=== PATIENT | female | born 1955 | race Caucasian/White ===

== ENCOUNTER 2016-06-02 09:24 | Inpatient (IN) | payer MEDICARE ==
[~2016-06-02] VITALS: Ht 162.6 cm; Wt 82.3 kg
[2016-06-02 03:00] VITALS: BP 157/74
[~2016-06-02 09:24] MED LIST: AMLO5TAB2 PO; ASPI-482 PO; ATEN25TA PO; CARI350T PO; CITA10TA8 PO; ESCI5TAB8 PO; LEVO25TA2 PO; LORA1TAB PO; LOSA50TA6 PO; PANT40TA5 PO
--- NOTE | 2016-06-02 10:05 | RAD ---
AP portable chest radiograph 06/02/2016 Clinical History: Chest congestion for several days. Shortness of breath. An AP portable erect digital radiograph of the chest was obtained. Comparison study is dated. Comparison study is dated 08/31/2015. The cardiac silhouette is normal in size. The thoracic aorta is mildly tortuous. No acute pulmonary infiltrate is seen. No pleural effusion or pneumothorax is noted. Degenerative changes are seen involving the thoracic spine and both shoulders.. Impression: No acute abnormality is seen.
[2016-06-02 10:15] LABS: BILIRUBIN,URINE NEGATIVE (NEG); GLUCOSE,URINE NEGATIVE (NEG); NITRITE,URINE NEGATIVE (NEG); PROTEIN,URINE NEGATIVE (NEG-TRACE); UROBILINOGEN,URINE 0.2 mg/dL (0.2 mg/dL)
[2016-06-02 10:24] LABS: BASO # 0.1 x10^3/uL (0.0-0.2); BASO % 2 % (0-3); EOS % 3 % (0-3); HEMATOCRIT 45.8 % (36.0-47.0); HEMOGLOBIN 15.3 g/dL (12.0-15.5); LYMPH # 2.6 x10^3/uL (1.0-4.8); LYMPH % 33 % (24-48); MEAN CORPUSCULAR HEMOGLOBIN 30 pg (25-35); MEAN CORPUSCULAR HGB CONC 34 g/dL (31-37); MEAN CORPUSCULAR VOLUME 91 fL (79-100); MONO % 8 % (0-9); NEUT % 54 % (31-73); PLATELET COUNT 320 x10^3/uL (140-400); RED BLOOD COUNT 5.06 x10^6/uL (3.50-5.40); RED CELL DISTRIBUTION WIDTH 15.5 % (11.5-14.5); WHITE BLOOD COUNT 7.9 x10^3/uL (4.0-11.0)
[2016-06-02 10:31] LABS: BACTERIA,URINE FEW /HPF (0-FEW); RBC,URINE OCC /HPF (0-2); SQUAMOUS EPITHELIAL CELL,UR MOD /LPF; WBC,URINE OCC /HPF (0-4)
[2016-06-02] MEDS ORDERED: IV NORMAL SALINE 500ML BAG 500 ML IV ONE (10:45)
[2016-06-02] MEDS ORDERED: ONDANSETRON PF 4 MG/2 ML VIAL. IV ONE (10:45)
[2016-06-02 10:51] LABS: CALCIUM 9.7 mg/dL (8.5-10.1); CREATININE 1.3 mg/dL (0.6-1.0); GFR 41.5; POTASSIUM 3.8 mmol/L (3.5-5.1)
[2016-06-02] MEDS: HYDROMORPHONE 2 MG/ML VIAL. IV PRN ×2 (10:54→12:02)
[2016-06-02 10:57] LABS: ALBUMIN 3.6 g/dL (3.4-5.0); DIRECT BILIRUBIN 0.1 mg/dL (0.0-0.2); TOTAL BILIRUBIN 0.6 mg/dL (0.2-1.0)
[2016-06-02] MEDS ORDERED: HYDR-2666 PO (11:23)
[2016-06-02] MEDS ORDERED: ONDA4TAB10 SL (11:23)
--- NOTE | 2016-06-02 11:24 | PHYS DOC ---
Past Medical History Past Medical History: Anxiety, Depression, High Cholesterol, Hypertension, Hypothyroid Past Surgical History: Tonsillectomy, Tubal ligation, Other Additional Past Surgical Histo: RIGHT ANKLE SURGERY Alcohol Use: None Drug Use: None Adult General Chief Complaint Chief Complaint: ABDOMINAL PAIN HPI HPI 20-year-old female presenting to the emergency department today with worsening abdominal pain in the left flank for greater than a month. She reports worsening anorexia and approximately 50 pound weight loss last year. She has intermittent watery stools without blood in her stool. She complains of her pain is a sharp intermittent pain that is all over. It does not localize. It is not have alleviating or exacerbating factors present. She has nausea but denies vomiting. Review of systems is negative for chest pain shortness of breath vomiting fevers chills. All other review of systems is negative unless otherwise noted in history of present illness. Review of Systems Review of Systems SEE ABOVE. Current Medications Current Medications Current Medications Medications (Trade) Dose Ordered Sig/Alberta Start Time Stop Time Status Last Admin Dose Admin Hydromorphone HCl (Dilaudid) 0.5 mg PRN Q1HR PRN 06/02/16 10:45 06/02/16 12:02 0.5 MG Ondansetron HCl 4 mg 4 mg 1X ONCE 06/02/16 10:45 06/02/16 10:46 DC 06/02/16 10:54 4 MG Sodium Chloride (Iv Sodium Chloride 0.9% 500ml Bag) 500 ml @ 500 mls/hr 1X ONCE 06/02/16 10:45 06/02/16 11:44 DC 06/02/16 10:54 500 MLS/HR Allergies Allergies Allergies Coded Allergies Type Severity Reaction Last Updated Verified No Known Drug Allergies 09/01/15 No Physical Exam Physical Exam Constitutional: Well developed, well nourished, no acute distress, non-toxic appearance. HENT: Normocephalic, atraumatic, bilateral external ears normal, oropharynx moist, no oral exudates, nose normal. Eyes: PERRLA, EOMI, conjunctiva normal, no discharge. [] Neck: Normal range of motion, no tenderness, supple, no stridor. Cardiovascular:Heart rate regular rhythm, no murmur [] Lungs & Thorax: Bilateral breath sounds clear to auscultation Abdomen: Soft nontender abdomen without rebound tenderness or guarding present. Negative McBurneys point. Negative Lockwood sign. No ecchymosis present. Skin: Warm, dry, no erythema, no rash. [] Back: No tenderness, mild left CVA tenderness. No CVA tenderness on the right. No ecchymosis or erythema present. Extremities: No tenderness, no cyanosis, no clubbing, ROM intact, no edema. Neurologic: Alert and oriented X 3, normal motor function, normal sensory function, no focal deficits noted. [] Psychologic: Affect normal, judgement normal, mood normal. [] Current Patient Data Vital Signs Vital Signs Date Time Temp Pulse Resp B/P Pulse Ox O2 Delivery O2 Flow Rate FiO2 06/02/16 09:36 97.6 92 18 152/98 98 Room Air 97.6 Lab Values Laboratory Tests Test 06/02/16 10:00 06/02/16 10:10 Urine Collection Type U cath Urine Color Yellow Urine Clarity Clear Urine pH 7.0 Urine Specific [place] 1.015 Urine Protein Negativemg/dL (NEG-TRACE) Urine Glucose (UA) Negativemg/dL (NEG) Urine Ketones (Stick) Negativemg/dL (NEG) Urine Blood Negative (NEG) Urine Nitrite Negative (NEG) Urine Bilirubin Negative (NEG) Urine Urobilinogen Dipstick 0.2mg/dL (0.2 mg/dL) Urine Leukocyte Esterase Negative (NEG) Urine RBC Occ/HPF (0-2) Urine WBC Occ/HPF (0-4) Urine Squamous Epithelial Cells Mod/LPF Urine Bacteria Few/HPF (0-FEW) Urine Hyaline Casts Few/HPF Urine Mucus Marked/LPF White Blood Count 7.9x10^3/uL (4.0-11.0) Red Blood Count 5.06x10^6/uL (3.50-5.40) Hemoglobin 15.3g/dL (12.0-15.5) Hematocrit 45.8% (36.0-47.0) Mean Corpuscular Volume 91fL (79-100) Mean Corpuscular Hemoglobin 30pg (25-35) Mean Corpuscular Hemoglobin Concent 34g/dL (31-37) Red Cell Distribution Width 15.5% (11.5-14.5) H Platelet Count 320x10^3/uL (140-400) Neutrophils (%) (Auto) 54% (31-73) Lymphocytes (%) (Auto) 33% (24-48) Monocytes (%) (Auto) 8% (0-9) Eosinophils (%) (Auto) 3% (0-3) Basophils (%) (Auto) 2% (0-3) Neutrophils # (Auto) 4.3x10^3uL (1.8-7.7) Lymphocytes # (Auto) 2.6x10^3/uL (1.0-4.8) Monocytes # (Auto) 0.6x10^3/uL (0.0-1.1) Eosinophils # (Auto) 0.3x10^3/uL (0.0-0.7) Basophils # (Auto) 0.1x10^3/uL (0.0-0.2) Sodium Level 142mmol/L (136-145) Potassium Level 3.8mmol/L (3.5-5.1) Chloride Level 104mmol/L (98-107) Carbon Dioxide Level 30mmol/L (21-32) Anion Gap 8 (6-14) Blood Urea Nitrogen 12mg/dL (7-20) Creatinine 1.3mg/dL (0.6-1.0) H Estimated GFR (Cockcroft-Gault) 41.5 Glucose Level 106mg/dL (70-99) H Calcium Level 9.7mg/dL (8.5-10.1) Total Bilirubin 0.6mg/dL (0.2-1.0) Direct Bilirubin 0.1mg/dL (0.0-0.2) Aspartate Amino Transferase (AST) 31U/L (15-37) Alanine Aminotransferase (ALT) 24U/L (14-59) Alkaline Phosphatase 84U/L (46-116) Troponin I Quantitative < 0.017ng/mL (0.000-0.055) DJ-Hlr-U-Type Natriuretic Peptide 422pg/mL (0-124) H Total Protein 8.0g/dL (6.4-8.2) Albumin 3.6g/dL (3.4-5.0) Lipase 177U/L (73-393) Laboratory Tests 06/02/16 10:10 Laboratory Tests 06/02/16 10:10 EKG EKG EKG shows sinus rhythm with regular rate. Normal intervals. Normal axis. ST segments are congruent. Not suggestive of ACS. Reviewed by myself.[] Radiology/Procedures Radiology/Procedures [] Course & Med Decision Making Course & Med Decision Making Pertinent Labs and Imaging studies reviewed. (See chart for details) [] 60-year-old female presenting to the emergency department with generalized abdominal pain for greater than a month it is intermittent. Vital signs showed afebrile with a normal heart rate. Mild hypertension. Physical exam showed a nontender abdomen with mild left CVA tenderness. Blood work was obtained. IV fluids administered along with pain and nausea medications administered. Blood work showed CBC which was unremarkable. Urinalysis not suggestive of infection. Normal specific gravity. Clear. Chemistry panel mild elevation in creatinine without uremia. ProBNP minimally elevated. Troponin within the reference range of normal. CT of the abdomen noncontrast obtained which showed no acute pathology. The patient was subsequently evaluated which continued to show a nontender abdomen. She was feeling better upon receiving her therapy in the emergency department. She was subsequent discharged home with nausea medication to follow-up with her primary care physician for further evaluation workup and care in 2-3 days. Dragon Disclaimer Dragon Disclaimer This electronic medical record was generated, in whole or in part, using a voice recognition dictation system. Departure Departure Impression: Primary Impression: Abdominal pain Additional Impression: Nausea & vomiting Disposition: 01 HOME, SELF-CARE Condition: STABLE Referrals: DONNA RODRIGUEZ MD (PCP) Patient Instructions: Abdominal Pain Additional Instructions: Thank you for allowing us to participate in your care today. Followup with your primary care physician in 3 days if your symptoms do not improve. If you do not have a primary care provider you can ask for a list of our primary care providers. Return to the emergency department you have any new or concerning findings. This should be evaluated by the primary care physician and any necessary consulting services for continued management within a few days after discharge. Return to emergency room if you have any new or concerning symptoms including but not limited to fever, chills, nausea, vomiting, intractable pain, any new rashes, chest pain, shortness of air, uncontrolled bleeding, difficulty breathing, and/or vision loss. You may have been prescribed medication that can change in your level of thinking and ability to operate machinery. These medications include hydrocodone and Ativan. Also, Benadryl has been known to do this as well. Be sure to check with your pharmacist and ask if the medications you've prescribed can affect your level of consciousness. I recommend not operating heavy machinery or driving while on medication such as these. Scripts Hydrocodone Bit/Acetaminophen (Hydrocodone-Apap 5-325 )1 Each Tablet1 Tab PO PRN Q6HRS PRN PAIN #15 TAB Be careful as this medication may cause you to be drowsy or tired. Do not drive on this medication. Prov:JUANITA WEBER MD 06/02/16 Ondansetron (Zofran Odt)4 Mg Tab.rapdis1 Tab SL PRN Q8HRS PRN NAUSEA #6 TAB Prov:JUANITA WEBER MD 06/02/16 Problem Qualifiers JUANITA WEBER MD Jun 02, 2016 11:24
--- NOTE | 2016-06-02 12:07 | RAD ---
CT scan of the abdomen and pelvis without contrast 06/02/2016 Clinical history: Increasing left flank pain for one month. Technique: Unenhanced, contiguous, 2 mm axial sections were obtained through the abdomen and pelvis. One or more of the following individualized dose reduction techniques were utilized for this study: 1. Automated exposure control. 2. Adjustment of the mA and/or kV according to patient size. 3. Use of iterative reconstruction technique. Findings: Comparison study is dated 08/31/2015. Images through the lung bases demonstrate mild cardiomegaly. Minimal dependent subsegmental atelectasis is seen bilaterally. The liver, spleen, and pancreas are within normal limits. A 1.7 cm low-attenuation lesion is seen involving the right adrenal gland. A 1.8 cm low-attenuation lesion is seen involving the left adrenal gland. These likely represent adrenal adenomas. A 8 mm low-attenuation lesion is seen involving the superior pole of the left kidney. This likely represents a cyst. No renal or ureteral calculus is seen. There is no evidence of obstruction of either collecting system. Moderate atherosclerotic calcification of the abdominal aorta is seen. The abdominal aorta tapers normally. The gallbladder is slightly contracted. No free fluid or free air is seen within the abdomen. There is no evidence of bowel obstruction. The appendix is well visualized and is within normal limits. Images through the pelvis demonstrate the urinary bladder distended with urine. The uterus is within normal limits. No adnexal mass is seen. No free fluid is noted. Minimal S shaped curvature of the thoracolumbar spine is seen. Degenerative changes are seen involving the lower thoracic and mid and lower lumbar spine and both hips. Impression: No acute abnormality is seen.
--- NOTE | 2016-06-02 12:33 | EKG ---
[facility] [address] [place] [address] Test Date: 2016-06-02 Test Time: 10:08:26 Pat Name: AMELIE CORREIA Department: Room: Gender: F Fabric Machine Operator: : [id number] Requested By: JUANITA WEBER Order Number: [id number] Reading MD: Measurements Intervals Slater Rate: 79 P: 62 ID: [id number] QRS: 28 QRSD: 76 T: 32 QT: 400 QTc: 460 Interpretive Statements SINUS RHYTHM CONSIDER RIGHT VENTRICULAR HYPERTROPHY POSSIBLY ABNORMAL ECG RI6.01 No previous ECG available for comparison
[2016-06-02] MEDS ORDERED: LABETALOL 20 MG/4 ML DISP.SYRIN. IVP ONE (12:45)
[2016-06-02] MEDS ORDERED: ONDANSETRON PF 4 MG/2 ML VIAL. IV PRN (13:45)
[2016-06-02] MEDS ORDERED: MORPHINE SULFATE 2 MG/ML DISP.SYRIN. IV PRN (13:45)
[2016-06-02] MEDS ORDERED: LORAZEPAM 1 MG TABLET. PO ONE (14:00)
[2016-06-02] MEDS ORDERED: LORAZEPAM 0.5 MG TABLET. PO ONE (14:00)
[2016-06-02] MEDS ORDERED: LEVO75TA PO (14:48)
[2016-06-02] MEDS ORDERED: ALPR1TAB2 PO (14:52)
[2016-06-02 15:00] VITALS: BP 132/78
[2016-06-02 15:41] VITALS: BP 132/78
--- NOTE | 2016-06-02 16:02 | ACF ---
Admission Forms Criteria Admission Criteria Met?: No DENIZ SANDRA Jun 02, 2016 16:02 JUANITA WEBER MD Jun 04, 2016 18:08
--- NOTE | 2016-06-02 16:28 | PDOC1 ---
History and Physical Date of Admission Date of Admission 06/02/16 Identification/Chief Complaint Chief Complaint abd pain Problems: Source Source: Caregiver, Chart review, Patient History of Present Illness History of Present Illness HPI HPI 20-year-old female presenting to the emergency department today for abd pain. She was here last August for epigastric pain, EGD showed esophagitis. Pt said the esophagitis pain is still there, now has lower abd pain , radiating to bl back. ALso has chronic back pain, but denies it is back pain worsening. As per at bedside, pt sometimes waking up with abd pain and cries. + Nausea, no vomiting, has both constipation and diarrhea sometimes. pt not taking protonix now. abd CT neg. + frequent urination for a long time. Past Medical History Past Medical History Anxiety, Depression, High Cholesterol, Hypertension, Hypothyroid Past Surgical History Past Surgical History tory: Tonsillectomy, Tubal ligation, Other Additional Past Surgical Histo: RIGHT ANKLE SURGERY Family History Family History: No Significant Social History Smoke: <1 pack per day ALCOHOL: none Drugs: None Current Problem List Problem List Problems Medical Problems: (1) Abdominal pain Status: Acute (2) Nausea & vomiting Status: Acute (3) Nausea and vomiting Status: Acute Current Medications Current Medications Current Medications Medications (Trade) Dose Ordered Sig/Alberta Start Time Stop Time Status Last Admin Dose Admin Hydromorphone HCl (Dilaudid) 0.5 mg PRN Q1HR PRN 06/02/16 10:45 06/02/16 12:02 0.5 MG Labetalol HCl (Normodyne) 20 mg 1X ONCE 06/02/16 12:45 06/02/16 12:46 DC 06/02/16 12:50 20 MG Lorazepam (Ativan) 0.5 mg 1X ONCE 06/02/16 14:00 06/02/16 14:01 DC 06/02/16 14:04 0.5 MG Morphine Sulfate 2 mg PRN Q2HR PRN 06/02/16 13:45 06/03/16 13:44 06/02/16 14:05 2 MG Ondansetron HCl (Zofran) 4 mg PRN Q8HRS PRN 06/02/16 13:45 06/03/16 13:44 Ondansetron HCl 4 mg 4 mg 1X ONCE 06/02/16 10:45 06/02/16 10:46 DC 06/02/16 10:54 4 MG Sodium Chloride (Iv Sodium Chloride 0.9% 500ml Bag) 500 ml @ 500 mls/hr 1X ONCE 06/02/16 10:45 06/02/16 11:44 DC 06/02/16 10:54 500 MLS/HR Allergies Allergies Allergies Coded Allergies Type Severity Reaction Last Updated Verified No Known Drug Allergies 09/01/15 No ROS Review of System CONSTITUTIONAL: No fever or chills EYES: No recent changes SKIN: No rash or itching CARDIOVASCULAR: No chest pain, syncope, palpitations, or edema RESPIRATORY: No SOB or cough GASTROINTESTINAL: No nausea, vomiting or abdominal pain NEUROLOGICAL: No headaches or weakness ENDOCRINE: No cold or heat intolerance GENITOURINARY: No urgency or frequency of urination MUSCULOSKELETAL: No back pain or joint pain LYMPHATICS: No enlarged lymph nodes PSYCHIATRIC: No anxiety or depression Physical Exam Physical Exam GEN.: No apparent distress. Alert and oriented. looks anxious, talks very slowly. HEENT: Head is normocephalic, atraumatic NECK: Supple. LUNGS: Clear to auscultation. HEART: RRR, S1, S2 present. Peripheral pulses intact ABDOMEN: Soft, Positive bowel sounds. epigastric and lower middle abd mid tenderness. EXTREMITIES: Without any cyanosis. NEUROLOGIC: Normal speech, normal tone PSYCHIATRIC: Normal affect, normal mood. SKIN: No ulcerations Vitals Vitals Vital Signs Date Time Temp Pulse Resp B/P Pulse Ox O2 Delivery O2 Flow Rate FiO2 06/02/16 15:41 97.9 67 14 132/78 Room Air 95.0 97.9 06/02/16 14:00 99 Labs Labs Laboratory Tests Test 06/02/16 10:00 06/02/16 10:10 Urine Collection Type U cath Urine Color Yellow Urine Clarity Clear Urine pH 7.0 Urine Specific [place] 1.015 Urine Protein Negativemg/dL (NEG-TRACE) Urine Glucose (UA) Negativemg/dL (NEG) Urine Ketones (Stick) Negativemg/dL (NEG) Urine Blood Negative (NEG) Urine Nitrite Negative (NEG) Urine Bilirubin Negative (NEG) Urine Urobilinogen Dipstick 0.2mg/dL (0.2 mg/dL) Urine Leukocyte Esterase Negative (NEG) Urine RBC Occ/HPF (0-2) Urine WBC Occ/HPF (0-4) Urine Squamous Epithelial Cells Mod/LPF Urine Bacteria Few/HPF (0-FEW) Urine Hyaline Casts Few/HPF Urine Mucus Marked/LPF White Blood Count 7.9x10^3/uL (4.0-11.0) Red Blood Count 5.06x10^6/uL (3.50-5.40) Hemoglobin 15.3g/dL (12.0-15.5) Hematocrit 45.8% (36.0-47.0) Mean Corpuscular Volume 91fL (79-100) Mean Corpuscular Hemoglobin 30pg (25-35) Mean Corpuscular Hemoglobin Concent 34g/dL (31-37) Red Cell Distribution Width 15.5% (11.5-14.5) Platelet Count 320x10^3/uL (140-400) Neutrophils (%) (Auto) 54% (31-73) Lymphocytes (%) (Auto) 33% (24-48) Monocytes (%) (Auto) 8% (0-9) Eosinophils (%) (Auto) 3% (0-3) Basophils (%) (Auto) 2% (0-3) Neutrophils # (Auto) 4.3x10^3uL (1.8-7.7) Lymphocytes # (Auto) 2.6x10^3/uL (1.0-4.8) Monocytes # (Auto) 0.6x10^3/uL (0.0-1.1) Eosinophils # (Auto) 0.3x10^3/uL (0.0-0.7) Basophils # (Auto) 0.1x10^3/uL (0.0-0.2) Sodium Level 142mmol/L (136-145) Potassium Level 3.8mmol/L (3.5-5.1) Chloride Level 104mmol/L (98-107) Carbon Dioxide Level 30mmol/L (21-32) Anion Gap 8 (6-14) Blood Urea Nitrogen 12mg/dL (7-20) Creatinine 1.3mg/dL (0.6-1.0) Estimated GFR (Cockcroft-Gault) 41.5 Glucose Level 106mg/dL (70-99) Calcium Level 9.7mg/dL (8.5-10.1) Total Bilirubin 0.6mg/dL (0.2-1.0) Direct Bilirubin 0.1mg/dL (0.0-0.2) Aspartate Amino Transf (AST/SGOT) 31U/L (15-37) Alanine Aminotransferase (ALT/SGPT) 24U/L (14-59) Alkaline Phosphatase 84U/L (46-116) Troponin I Quantitative < 0.017ng/mL (0.000-0.055) WD-Gmf-O-Type Natriuretic Peptide 422pg/mL (0-124) Total Protein 8.0g/dL (6.4-8.2) Albumin 3.6g/dL (3.4-5.0) Lipase 177U/L (73-393) Laboratory Tests Test 06/02/16 10:00 06/02/16 10:10 Urine Collection Type U cath Urine Color Yellow Urine Clarity Clear Urine pH 7.0 Urine Specific [place] 1.015 Urine Protein Negativemg/dL (NEG-TRACE) Urine Glucose (UA) Negativemg/dL (NEG) Urine Ketones (Stick) Negativemg/dL (NEG) Urine Blood Negative (NEG) Urine Nitrite Negative (NEG) Urine Bilirubin Negative (NEG) Urine Urobilinogen Dipstick 0.2mg/dL (0.2 mg/dL) Urine Leukocyte Esterase Negative (NEG) Urine RBC Occ/HPF (0-2) Urine WBC Occ/HPF (0-4) Urine Squamous Epithelial Cells Mod/LPF Urine Bacteria Few/HPF (0-FEW) Urine Hyaline Casts Few/HPF Urine Mucus Marked/LPF White Blood Count 7.9x10^3/uL (4.0-11.0) Red Blood Count 5.06x10^6/uL (3.50-5.40) Hemoglobin 15.3g/dL (12.0-15.5) Hematocrit 45.8% (36.0-47.0) Mean Corpuscular Volume 91fL (79-100) Mean Corpuscular Hemoglobin 30pg (25-35) Mean Corpuscular Hemoglobin Concent 34g/dL (31-37) Red Cell Distribution Width 15.5% (11.5-14.5) Platelet Count 320x10^3/uL (140-400) Neutrophils (%) (Auto) 54% (31-73) Lymphocytes (%) (Auto) 33% (24-48) Monocytes (%) (Auto) 8% (0-9) Eosinophils (%) (Auto) 3% (0-3) Basophils (%) (Auto) 2% (0-3) Neutrophils # (Auto) 4.3x10^3uL (1.8-7.7) Lymphocytes # (Auto) 2.6x10^3/uL (1.0-4.8) Monocytes # (Auto) 0.6x10^3/uL (0.0-1.1) Eosinophils # (Auto) 0.3x10^3/uL (0.0-0.7) Basophils # (Auto) 0.1x10^3/uL (0.0-0.2) Sodium Level 142mmol/L (136-145) Potassium Level 3.8mmol/L (3.5-5.1) Chloride Level 104mmol/L (98-107) Carbon Dioxide Level 30mmol/L (21-32) Anion Gap 8 (6-14) Blood Urea Nitrogen 12mg/dL (7-20) Creatinine 1.3mg/dL (0.6-1.0) Estimated GFR (Cockcroft-Gault) 41.5 Glucose Level 106mg/dL (70-99) Calcium Level 9.7mg/dL (8.5-10.1) Total Bilirubin 0.6mg/dL (0.2-1.0) Direct Bilirubin 0.1mg/dL (0.0-0.2) Aspartate Amino Transf (AST/SGOT) 31U/L (15-37) Alanine Aminotransferase (ALT/SGPT) 24U/L (14-59) Alkaline Phosphatase 84U/L (46-116) Troponin I Quantitative < 0.017ng/mL (0.000-0.055) BN-Utl-W-Type Natriuretic Peptide 422pg/mL (0-124) Total Protein 8.0g/dL (6.4-8.2) Albumin 3.6g/dL (3.4-5.0) Lipase 177U/L (73-393) VTE Prophylaxis Ordered VTE Prophylaxis Devices: No VTE Pharmacological Prophylaxi: No Assessment/Plan Assessment/Plan 1. epigastric abd pain with known esophagitis and esophagus web 2 lower abd pain 3., depression, anxiety, 4. hypertension urgency 5.hyperlipidemia 6. hypothyroidism 7. SMoker 8.ckd3 9. mild malnutrition 10 . urinary frequency plan: 1. gi, uro consult 2. full liquid now, ivf 1 L 3. CONT HOME meds add protonix 4. no lovenox for now may start tmr 5. ptot may need to repeat abd pelvis ct w contrast if abd pain not better CHRISTOPHER MENJIVAR MD Jun 02, 2016 16:28
[2016-06-02] MEDS ORDERED: HYDROCODONE/APAP 5/325MG TABLET. PO PRN (16:30)
[2016-06-02] MEDS ORDERED: hydrALAZINE 20 MG/ML VIAL. IVP PRN (16:30)
[2016-06-02] MEDS ORDERED: ACETAMINOPHEN 325 MG TABLET. PO PRN (16:30)
[2016-06-02] MEDS: PANTOPRAZOLE 40 MG TABLET. PO SCH (17:17)
[2016-06-02] MEDS ORDERED: IV NORMAL SALINE 1000ML BAG 1,000 ML IV ONE (17:30)
[2016-06-02] MEDS: ALPRAZOLAM 1 MG TABLET PO PRN (17:41)
[2016-06-02 19:00] VITALS: BP 132/72
[2016-06-02] MEDS: CITALOPRAM 20 MG TABLET. PO SCH (20:48)
[2016-06-02] MEDS: CARISOPRODOL 350 MG TABLET PO SCH (20:48)
[2016-06-03 03:00] VITALS: BP 157/74
[2016-06-03 04:52] LABS: CALCIUM 9.1 mg/dL (8.5-10.1); CREATININE 1.2 mg/dL (0.6-1.0); GFR 45.5; POTASSIUM 3.2 mmol/L (3.5-5.1)
[2016-06-03 04:53] LABS: BASO # 0.1 x10^3/uL (0.0-0.2); BASO % 1 % (0-3); EOS % 5 % (0-3); HEMATOCRIT 40.4 % (36.0-47.0); HEMOGLOBIN 13.4 g/dL (12.0-15.5); LYMPH # 3.5 x10^3/uL (1.0-4.8); LYMPH % 50 % (24-48); MEAN CORPUSCULAR HEMOGLOBIN 31 pg (25-35); MEAN CORPUSCULAR HGB CONC 33 g/dL (31-37); MEAN CORPUSCULAR VOLUME 92 fL (79-100); MONO % 10 % (0-9); NEUT % 34 % (31-73); PLATELET COUNT 266 x10^3/uL (140-400); RED CELL DISTRIBUTION WIDTH 15.6 % (11.5-14.5)
[2016-06-03] MEDS: LEVOTHYROXINE 75 MCG TABLET PO SCH (06:05)
[2016-06-03] MEDS: ALPRAZOLAM 1 MG TABLET PO PRN ×3 (06:27→19:46)
[2016-06-03 07:00] VITALS: BP 138/94
[2016-06-03] MEDS ORDERED: PANTOPRAZOLE 40 MG TABLET. PO SCH (07:30)
[2016-06-03] MEDS: ASPIRIN ENTERIC COATED 81 MG TABLET.DR. PO SCH (08:56)
[2016-06-03] MEDS: LOSARTAN POTASSIUM 50 MG TABLET. PO SCH (08:56)
[2016-06-03] MEDS: ONDANSETRON PF 4 MG/2 ML VIAL. IV PRN ×2 (08:56→16:24)
[2016-06-03] MEDS: AMLODIPINE BESYLATE 5 MG TABLET PO SCH (08:57)
[2016-06-03] MEDS: ATENOLOL 50 MG TABLET PO SCH (08:57)
[2016-06-03] MEDS: PANTOPRAZOLE 40 MG TABLET. PO SCH (08:57)
--- NOTE | 2016-06-03 09:56 | PDOC2 ---
GI CONSULT Reason For Consult: N/v, abd pain HPI: HPI: 60 y/o female previously evaluated by Dr. Alonso during admission in 08/2015 for epigastric pain, nausea, and indigestion w/ possible h/o PUD in 2013. EGD in 08/2015 showed proximal esophageal web (treated by passage of scope), mostly- healed reflux esophagitis, normal stomach, and normal duodenum. She was advised to continue PPI (w/ optimal dosing in a.m., waiting 30-45 min before breakfast). On this occasion, she reports abdominal pain (says mikhail) radiating to her back (points to left hip) that has been ongoing for a year. History is difficult. It is worse after drinking orange juice or coffee, and also after eating some foods (can't elaborate). She's not sure if abdominal pain always occurs w/ back pain or if they occur separately. She has lost weight (20 or 40 pounds) because she avoids eating. Home med list shows ASA and pantoprazole; she reports taking two "stomach pills" at home, isn't sure what they're called, but eventually decides she does take pantoprazole. Denies NSAID use. Occasional alternating diarrhea and constipation but generally does not have issues w/ this. Denies hematemesis, melena, hematochezia. After much discussion w/ RN, she says Zofran and pantoprazole have helped here. She wants to go home today. PMH: PMH: HTN, HLD, hypothyroidism, depression/anxiety, right ankle surgery, tubal ligation, tonsillectomy, carotid endarterectomy FH: Family History: No pertinent hx Social History: Smoke: <1 pack per day ALCOHOL: none Drugs: None ROS: GEN: Denies fevers, chills, sweats HEENT: Denies blurred vision, sore throat CV: Denies chest pain RESP: Denies shortness of air, cough GI: Per HPI : Denies hematuria, dysuria ENDO: Denies weight changes NEURO: Denies confusion, dizziness MSK: +back pain SKIN: Denies jaundice, pruritus VItals: Vitals: Vital Signs Date Time Temp Pulse Resp B/P Pulse Ox O2 Delivery O2 Flow Rate FiO2 06/03/16 08:57 63 138/94 06/03/16 07:00 97.7 16 97 Room Air 97.7 2/5/17 15:41 95.0 Labs: Labs: Laboratory Tests Test 06/02/16 10:00 06/02/16 10:10 06/03/16 03:44 Urine Collection Type U cath Urine Color Yellow Urine Clarity Clear Urine pH 7.0 Urine Specific [place] 1.015 Urine Protein Negativemg/dL (NEG-TRACE) Urine Glucose (UA) Negativemg/dL (NEG) Urine Ketones (Stick) Negativemg/dL (NEG) Urine Blood Negative (NEG) Urine Nitrite Negative (NEG) Urine Bilirubin Negative (NEG) Urine Urobilinogen Dipstick 0.2mg/dL (0.2 mg/dL) Urine Leukocyte Esterase Negative (NEG) Urine RBC Occ/HPF (0-2) Urine WBC Occ/HPF (0-4) Urine Squamous Epithelial Cells Mod/LPF Urine Bacteria Few/HPF (0-FEW) Urine Hyaline Casts Few/HPF Urine Mucus Marked/LPF White Blood Count 7.9x10^3/uL (4.0-11.0) 7.0x10^3/uL (4.0-11.0) Red Blood Count 5.06x10^6/uL (3.50-5.40) 4.40x10^6/uL (3.50-5.40) Hemoglobin 15.3g/dL (12.0-15.5) 13.4g/dL (12.0-15.5) Hematocrit 45.8% (36.0-47.0) 40.4% (36.0-47.0) Mean Corpuscular Volume 91fL (79-100) 92fL (79-100) Mean Corpuscular Hemoglobin 30pg (25-35) 31pg (25-35) Mean Corpuscular Hemoglobin Concent 34g/dL (31-37) 33g/dL (31-37) Red Cell Distribution Width 15.5% (11.5-14.5) 15.6% (11.5-14.5) Platelet Count 320x10^3/uL (140-400) 266x10^3/uL (140-400) Neutrophils (%) (Auto) 54% (31-73) 34% (31-73) Lymphocytes (%) (Auto) 33% (24-48) 50% (24-48) Monocytes (%) (Auto) 8% (0-9) 10% (0-9) Eosinophils (%) (Auto) 3% (0-3) 5% (0-3) Basophils (%) (Auto) 2% (0-3) 1% (0-3) Neutrophils # (Auto) 4.3x10^3uL (1.8-7.7) 2.4x10^3uL (1.8-7.7) Lymphocytes # (Auto) 2.6x10^3/uL (1.0-4.8) 3.5x10^3/uL (1.0-4.8) Monocytes # (Auto) 0.6x10^3/uL (0.0-1.1) 0.7x10^3/uL (0.0-1.1) Eosinophils # (Auto) 0.3x10^3/uL (0.0-0.7) 0.4x10^3/uL (0.0-0.7) Basophils # (Auto) 0.1x10^3/uL (0.0-0.2) 0.1x10^3/uL (0.0-0.2) Sodium Level 142mmol/L (136-145) 144mmol/L (136-145) Potassium Level 3.8mmol/L (3.5-5.1) 3.2mmol/L (3.5-5.1) Chloride Level 104mmol/L (98-107) 107mmol/L (98-107) Carbon Dioxide Level 30mmol/L (21-32) 28mmol/L (21-32) Anion Gap 8 (6-14) 9 (6-14) Blood Urea Nitrogen 12mg/dL (7-20) 10mg/dL (7-20) Creatinine 1.3mg/dL (0.6-1.0) 1.2mg/dL (0.6-1.0) Estimated GFR (Cockcroft-Gault) 41.5 45.5 Glucose Level 106mg/dL (70-99) 83mg/dL (70-99) Calcium Level 9.7mg/dL (8.5-10.1) 9.1mg/dL (8.5-10.1) Total Bilirubin 0.6mg/dL (0.2-1.0) Direct Bilirubin 0.1mg/dL (0.0-0.2) Aspartate Amino Transf (AST/SGOT) 31U/L (15-37) Alanine Aminotransferase (ALT/SGPT) 24U/L (14-59) Alkaline Phosphatase 84U/L (46-116) Troponin I Quantitative < 0.017ng/mL (0.000-0.055) BI-[id number]-[id number]-Type Natriuretic Peptide 422pg/mL (0-124) Total Protein 8.0g/dL (6.4-8.2) Albumin 3.6g/dL (3.4-5.0) Lipase 177U/L (73-393) Allergies: Coded Allergies: No Known Drug Allergies (Unverified , 09/01/15) Medications: Current Medications Medications (Trade) Dose Ordered Sig/[place] Route PRN Reason Start Time Stop Time Status Last Admin Dose Admin Hydromorphone HCl (Dilaudid) 0.5 mg PRN Q1HR PRN IV SEVERE PAIN 06/02/16 10:45 06/02/16 12:02 Ondansetron HCl 4 mg 4 mg 1X ONCE IV 06/02/16 10:45 06/02/16 10:46 DC 06/02/16 10:54 Sodium Chloride (Iv Sodium Chloride 0.9% 500ml Bag) 500 ml @ 500 mls/hr 1X ONCE IV 06/02/16 10:45 06/02/16 11:44 DC 06/02/16 10:54 Labetalol HCl (Normodyne) 20 mg 1X ONCE IVP 06/02/16 12:45 06/02/16 12:46 DC 06/02/16 12:50 Morphine Sulfate 2 mg PRN Q2HR PRN IV PAIN 06/02/16 13:45 06/03/16 13:44 06/02/16 14:05 Lorazepam (Ativan) 0.5 mg 1X ONCE PO 06/02/16 14:00 06/02/16 14:01 DC 06/02/16 14:04 Alprazolam (Xanax) 1 mg PRN TID PRN PO ANXIETY / AGITATION 06/02/16 16:30 06/03/16 06:27 Amlodipine Besylate (Norvasc) 5 mg DAILY PO 06/03/16 09:00 06/03/16 08:57 Aspirin (Ecotrin) 81 mg DAILY PO 06/03/16 09:00 06/03/16 08:56 Atenolol (Tenormin) 50 mg DAILY PO 06/03/16 09:00 06/03/16 08:57 Levothyroxine Sodium (Synthroid) 75 mcg DAILY07 PO 06/03/16 07:00 06/03/16 06:05 Losartan Potassium (Cozaar) 100 mg DAILY PO 06/03/16 09:00 06/03/16 08:56 Pantoprazole Sodium (Protonix) 40 mg DAILYAC PO 06/02/16 17:30 06/03/16 08:57 Acetaminophen (Tylenol) 650 mg PRN Q6HRS PRN PO MILD PAIN / TEMP 06/02/16 16:30 06/02/16 17:17 Ondansetron HCl 4 mg 4 mg PRN Q6HRS PRN IV NAUSEA/VOMITING 06/02/16 16:30 06/03/16 08:56 Sodium Chloride (Iv Sodium Chloride 0.9% 1000ml Bag) 1,000 ml @ 75 mls/hr 1X ONCE IV 06/02/16 17:30 06/03/16 06:49 DC 06/02/16 17:22 Imaging: Imaging: CXR 06/02/16 Impression: No acute abnormality is seen. CT A/P 06/02/16 Images through the lung bases demonstrate mild cardiomegaly. Minimal dependent subsegmental atelectasis is seen bilaterally. The liver, spleen, and pancreas are within normal limits. A 1.7 cm low- attenuation lesion is seen involving the right adrenal gland. A 1.8 cm low- attenuation lesion is seen involving the left adrenal gland. These likely represent adrenal adenomas. A 8 mm low-attenuation lesion is seen involving the superior pole of the left kidney. This likely represents a cyst. No renal or ureteral calculus is seen. There is no evidence of obstruction of either collecting system. Moderate atherosclerotic calcification of the abdominal aorta is seen. The abdominal aorta tapers normally. The gallbladder is slightly contracted. No free fluid or free air is seen within the abdomen. There is no evidence of bowel obstruction. The appendix is well visualized and is within normal limits. Images through the pelvis demonstrate the urinary bladder distended with urine. The uterus is within normal limits. No adnexal mass is seen. No free fluid is noted. Minimal S shaped curvature of the thoracolumbar spine is seen. Degenerative changes are seen involving the lower thoracic and mid and lower lumbar spine and both hips. Impression: No acute abnormality is seen. PE: GEN: NAD, laying on left side (says she doesn't want to roll to back) HEENT: Atraumatic, PERRL LUNGS: CTAB anteriorly HEART: RRR ABD: BS+, non-tender and soft, points to epigastrium as location of pain EXTREMITY: No edema SKIN: No rashes, no jaundice NEURO/PSYCH: A & O 3 A/P: A/P: Abdominal pain -seems chronic, aggravated by eating/drinking -reports weight loss -h/o GERD w/ last EGD in 08/2015 -on PPI at home I think -pain seems to be in epigastrium, reported this admission w/ "back pain" CRC screen -colonoscopy w/ Dr. Damico in 2006 showed hyperplastic polyps and hemorrhoids -- Difficult history. Seems improved a little; like Zofran and pantoprazole here. Seems would benefit from continued PPI. Will review w/ Dr. Alonso. HERON CAST Jun 03, 2016 09:56
[2016-06-03 11:00] VITALS: BP 145/87
[2016-06-03 15:00] VITALS: BP 135/73
--- NOTE | 2016-06-03 17:30 | PDOC ---
PROGRESS NOTES Chief Complaint Chief Complaint 1. epigastric abd pain with known esophagitis and esophagus web 2 lower abd pain 3., depression, anxiety, 4. hypertension urgency 5.hyperlipidemia 6. hypothyroidism 7. SMoker 8.ckd3 9. mild malnutrition 10 . urinary frequency History of Present Illness History of Present Illness pt resting with NAD Awakens VSS DW RN Vitals Vitals Vital Signs Date Time Temp Pulse Resp B/P Pulse Ox O2 Delivery O2 Flow Rate FiO2 06/03/16 15:00 97.9 50 18 135/73 99 Room Air 97.9 06/03/16 08:00 95.0 Physical Exam General: Alert, Oriented X3 Heart: Regular rate, Normal S1 Lungs: Clear Abdomen: Normal bowel sounds, No tenderness Extremities: No clubbing, No cyanosis Skin: No rashes, No breakdown Labs LABS Laboratory Tests Test 06/03/16 03:44 White Blood Count 7.0x10^3/uL (4.0-11.0) Red Blood Count 4.40x10^6/uL (3.50-5.40) Hemoglobin 13.4g/dL (12.0-15.5) Hematocrit 40.4% (36.0-47.0) Mean Corpuscular Volume 92fL (79-100) Mean Corpuscular Hemoglobin 31pg (25-35) Mean Corpuscular Hemoglobin Concent 33g/dL (31-37) Red Cell Distribution Width 15.6% (11.5-14.5) Platelet Count 266x10^3/uL (140-400) Neutrophils (%) (Auto) 34% (31-73) Lymphocytes (%) (Auto) 50% (24-48) Monocytes (%) (Auto) 10% (0-9) Eosinophils (%) (Auto) 5% (0-3) Basophils (%) (Auto) 1% (0-3) Neutrophils # (Auto) 2.4x10^3uL (1.8-7.7) Lymphocytes # (Auto) 3.5x10^3/uL (1.0-4.8) Monocytes # (Auto) 0.7x10^3/uL (0.0-1.1) Eosinophils # (Auto) 0.4x10^3/uL (0.0-0.7) Basophils # (Auto) 0.1x10^3/uL (0.0-0.2) Sodium Level 144mmol/L (136-145) Potassium Level 3.2mmol/L (3.5-5.1) Chloride Level 107mmol/L (98-107) Carbon Dioxide Level 28mmol/L (21-32) Anion Gap 9 (6-14) Blood Urea Nitrogen 10mg/dL (7-20) Creatinine 1.2mg/dL (0.6-1.0) Estimated GFR (Cockcroft-Gault) 45.5 Glucose Level 83mg/dL (70-99) Calcium Level 9.1mg/dL (8.5-10.1) Review of Systems Review of Systems co weakness co nausea Assessment and Plan Assessmemt and Plan Problems Medical Problems: (1) Abdominal pain Status: Acute (2) Nausea & vomiting Status: Acute (3) Nausea and vomiting Status: Acute 1. epigastric abd pain with known esophagitis and esophagus web 2 lower abd pain 3., depression, anxiety, 4. hypertension urgency 5.hyperlipidemia 6. hypothyroidism 7. SMoker 8.ckd3 9. mild malnutrition 10 . urinary frequency plan: 1. gi, uro consult in progress 2. full liquid now, ivf 1 L 3. CONT HOME meds add protonix 4. no lovenox for now may start tmr 5. ptot ma Problems: Comment Review of Relevant I have reviewed the following items andre (where applicable) has been applied. Labs Laboratory Tests Test 06/02/16 10:00 06/02/16 10:10 06/03/16 03:44 Urine Collection Type U cath Urine Color Yellow Urine Clarity Clear Urine pH 7.0 Urine Specific [place] 1.015 Urine Protein Negativemg/dL (NEG-TRACE) Urine Glucose (UA) Negativemg/dL (NEG) Urine Ketones (Stick) Negativemg/dL (NEG) Urine Blood Negative (NEG) Urine Nitrite Negative (NEG) Urine Bilirubin Negative (NEG) Urine Urobilinogen Dipstick 0.2mg/dL (0.2 mg/dL) Urine Leukocyte Esterase Negative (NEG) Urine RBC Occ/HPF (0-2) Urine WBC Occ/HPF (0-4) Urine Squamous Epithelial Cells Mod/LPF Urine Bacteria Few/HPF (0-FEW) Urine Hyaline Casts Few/HPF Urine Mucus Marked/LPF White Blood Count 7.9x10^3/uL (4.0-11.0) 7.0x10^3/uL (4.0-11.0) Red Blood Count 5.06x10^6/uL (3.50-5.40) 4.40x10^6/uL (3.50-5.40) Hemoglobin 15.3g/dL (12.0-15.5) 13.4g/dL (12.0-15.5) Hematocrit 45.8% (36.0-47.0) 40.4% (36.0-47.0) Mean Corpuscular Volume 91fL (79-100) 92fL (79-100) Mean Corpuscular Hemoglobin 30pg (25-35) 31pg (25-35) Mean Corpuscular Hemoglobin Concent 34g/dL (31-37) 33g/dL (31-37) Red Cell Distribution Width 15.5% (11.5-14.5) 15.6% (11.5-14.5) Platelet Count 320x10^3/uL (140-400) 266x10^3/uL (140-400) Neutrophils (%) (Auto) 54% (31-73) 34% (31-73) Lymphocytes (%) (Auto) 33% (24-48) 50% (24-48) Monocytes (%) (Auto) 8% (0-9) 10% (0-9) Eosinophils (%) (Auto) 3% (0-3) 5% (0-3) Basophils (%) (Auto) 2% (0-3) 1% (0-3) Neutrophils # (Auto) 4.3x10^3uL (1.8-7.7) 2.4x10^3uL (1.8-7.7) Lymphocytes # (Auto) 2.6x10^3/uL (1.0-4.8) 3.5x10^3/uL (1.0-4.8) Monocytes # (Auto) 0.6x10^3/uL (0.0-1.1) 0.7x10^3/uL (0.0-1.1) Eosinophils # (Auto) 0.3x10^3/uL (0.0-0.7) 0.4x10^3/uL (0.0-0.7) Basophils # (Auto) 0.1x10^3/uL (0.0-0.2) 0.1x10^3/uL (0.0-0.2) Sodium Level 142mmol/L (136-145) 144mmol/L (136-145) Potassium Level 3.8mmol/L (3.5-5.1) 3.2mmol/L (3.5-5.1) Chloride Level 104mmol/L (98-107) 107mmol/L (98-107) Carbon Dioxide Level 30mmol/L (21-32) 28mmol/L (21-32) Anion Gap 8 (6-14) 9 (6-14) Blood Urea Nitrogen 12mg/dL (7-20) 10mg/dL (7-20) Creatinine 1.3mg/dL (0.6-1.0) 1.2mg/dL (0.6-1.0) Estimated GFR (Cockcroft-Gault) 41.5 45.5 Glucose Level 106mg/dL (70-99) 83mg/dL (70-99) Calcium Level 9.7mg/dL (8.5-10.1) 9.1mg/dL (8.5-10.1) Total Bilirubin 0.6mg/dL (0.2-1.0) Direct Bilirubin 0.1mg/dL (0.0-0.2) Aspartate Amino Transf (AST/SGOT) 31U/L (15-37) Alanine Aminotransferase (ALT/SGPT) 24U/L (14-59) Alkaline Phosphatase 84U/L (46-116) Troponin I Quantitative < 0.017ng/mL (0.000-0.055) [id number]-Type Natriuretic Peptide 422pg/mL (0-124) Total Protein 8.0g/dL (6.4-8.2) Albumin 3.6g/dL (3.4-5.0) Lipase 177U/L (73-393) Laboratory Tests Test 06/03/16 03:44 White Blood Count 7.0x10^3/uL (4.0-11.0) Red Blood Count 4.40x10^6/uL (3.50-5.40) Hemoglobin 13.4g/dL (12.0-15.5) Hematocrit 40.4% (36.0-47.0) Mean Corpuscular Volume 92fL (79-100) Mean Corpuscular Hemoglobin 31pg (25-35) Mean Corpuscular Hemoglobin Concent 33g/dL (31-37) Red Cell Distribution Width 15.6% (11.5-14.5) Platelet Count 266x10^3/uL (140-400) Neutrophils (%) (Auto) 34% (31-73) Lymphocytes (%) (Auto) 50% (24-48) Monocytes (%) (Auto) 10% (0-9) Eosinophils (%) (Auto) 5% (0-3) Basophils (%) (Auto) 1% (0-3) Neutrophils # (Auto) 2.4x10^3uL (1.8-7.7) Lymphocytes # (Auto) 3.5x10^3/uL (1.0-4.8) Monocytes # (Auto) 0.7x10^3/uL (0.0-1.1) Eosinophils # (Auto) 0.4x10^3/uL (0.0-0.7) Basophils # (Auto) 0.1x10^3/uL (0.0-0.2) Sodium Level 144mmol/L (136-145) Potassium Level 3.2mmol/L (3.5-5.1) Chloride Level 107mmol/L (98-107) Carbon Dioxide Level 28mmol/L (21-32) Anion Gap 9 (6-14) Blood Urea Nitrogen 10mg/dL (7-20) Creatinine 1.2mg/dL (0.6-1.0) Estimated GFR (Cockcroft-Gault) 45.5 Glucose Level 83mg/dL (70-99) Calcium Level 9.1mg/dL (8.5-10.1) Medications Current Medications Hydromorphone HCl (Dilaudid) 0.5 mg PRN Q1HR PRN IV SEVERE PAIN Last administered on 06/02/16 12:02; Start 06/02/16 at 10:45 Ondansetron HCl 4 mg 4 mg 1X ONCE IV Last administered on 06/02/16 10:54; Start 06/02/16 at 10:45; Stop 06/02/16 at 10:46; Status DC Sodium Chloride (Iv Sodium Chloride 0.9% 500ml Bag) 500 ml @ 500 mls/hr 1X ONCE IV Last administered on 06/02/16 10:54; Start 06/02/16 at 10:45; Stop at 11:44; Status DC Labetalol HCl (Normodyne) 20 mg 1X ONCE IVP Last administered on 06/02/16 12: 50; Start 06/02/16 at 12:45; Stop 06/02/16 at 12:46; Status DC Ondansetron HCl (Zofran) 4 mg PRN Q8HRS PRN IV NAUSEA/VOMITING; Start 06/02/16 at 13:45; Stop 06/02/16 at 17:02; Status DC Morphine Sulfate 2 mg PRN Q2HR PRN IV PAIN Last administered on 06/02/16 14:05 ; Start 06/02/16 at 13:45; Stop 06/03/16 at 13:44; Status DC Lorazepam (Ativan) 0.5 mg 1X ONCE PO ; Start 06/02/16 at 14:00; Stop 06/02/16 at 14:00; Status DC Lorazepam (Ativan) 0.5 mg 1X ONCE PO Last administered on 06/02/16 14:04; Start 06/02/16 at 14:00; Stop 06/02/16 at 14:01; Status DC Alprazolam (Xanax) 1 mg PRN TID PRN PO ANXIETY / AGITATION Last administered on 06/03/16 06:27; Start 06/02/16 at 16:30; Stop 06/03/16 at 12:03; Status DC Amlodipine Besylate (Norvasc) 5 mg DAILY PO Last administered on 06/03/16 08:57 ; Start 06/03/16 at 09:00 Aspirin (Ecotrin) 81 mg DAILY PO Last administered on 06/03/16 08:56; Start 06/03/16 at 09:00 Atenolol (Tenormin) 50 mg DAILY PO Last administered on 06/03/16 08:57; Start 06/03/16 at 09:00 Carisoprodol (Soma) 700 mg QHS PO ; Start 06/02/16 at 21:00 Citalopram Hydrobromide (Celexa) 40 mg HS PO ; Start 06/02/16 at 21:00 Acetaminophen/ Hydrocodone Bitart (Lortab 5/325) 1 tab PRN Q6HRS PRN PO PAIN; Start 06/02/16 at 16:30 Levothyroxine Sodium (Synthroid) 75 mcg DAILY07 PO Last administered on 06:05; Start 06/03/16 at 07:00 Losartan Potassium (Cozaar) 100 mg DAILY PO Last administered on 06/03/16 08:56 ; Start 06/03/16 at 09:00 Pantoprazole Sodium (Protonix) 40 mg DAILYAC PO ; Start 06/03/16 at 07:30; Stop 06/03/16 at 07:30; Status DC Pantoprazole Sodium (Protonix) 40 mg DAILYAC PO Last administered on 06/03/16 08:57; Start 06/02/16 at 17:30 Acetaminophen (Tylenol) 650 mg PRN Q6HRS PRN PO MILD PAIN / TEMP Last administered on 06/02/16 17:17; Start 06/02/16 at 16:30 Ondansetron HCl (Zofran) 4 mg PRN Q6HRS PRN IV NAUSEA/VOMITING Last administered on 06/03/16 16:24; Start 06/02/16 at 16:30 Hydralazine HCl 10 mg 10 mg PRN Q4HRS PRN IVP ELEVATED BP, SEE COMMENTS; Start 06/02/16 at 16:30 Sodium Chloride (Iv Sodium Chloride 0.9% 1000ml Bag) 1,000 ml @ 75 mls/hr 1X ONCE IV Last administered on 06/02/16 17:22; Start 06/02/16 at 17:30; Stop at 06:49; Status DC Alprazolam (Xanax) 1 mg QID PRN PO ANXIETY / AGITATION Last administered on 06/03 12:17; Start 06/03/16 at 13:00 Active Scripts Active Hydrocodone-Apap 5-325 (Hydrocodone Bit/Acetaminophen) 1 Each Tablet 1 Tab PO PRN Q6HRS PRN Be careful as this medication may cause you to be drowsy or tired. Do not drive on this medication. Zofran Odt (Ondansetron) 4 Mg Tab.rapdis 1 Tab SL PRN Q8HRS PRN Pantoprazole Sodium 40 Mg Tablet. 40 Mg PO DAILYAC Amlodipine Besylate 5 Mg Tablet 5 Mg PO DAILY Reported Xanax (Alprazolam) 1 Mg Tablet 1 Mg PO PRN TID PRN Synthroid (Levothyroxine Sodium) 75 Mcg Tablet 1 Tab PO DAILY Soma (Carisoprodol) 350 Mg Tablet 2 Tab PO QHS Losartan Potassium 50 Mg Tablet 100 Mg PO DAILY Aspir 81 (Aspirin) 81 Mg Tablet.dr 1 Tab PO DAILY Celexa (Citalopram Hydrobromide) 10 Mg Tablet 40 Mg PO HS Atenolol 25 Mg Tablet 50 Mg PO DAILY Vitals/I & O Vital Sign - Last 24 Hours 06/02/16 06/02/16 06/03/16 06/03/16 19:00 20:05 03:00 07:00 Temp 97.9 97.9 97.7 97.9 97.9 97.7 Pulse 61 56 63 Resp 20 20 16 B/P 132/72 157/74 138/94 Pulse Ox 95 97 97 O2 Delivery Room Air Room Air Room Air Room Air 06/03/16 06/03/16 06/03/16 06/03/16 08:00 08:56 08:57 08:57 Pulse 63 63 63 B/P 138/94 138/94 138/94 O2 Delivery Room Air O2 Flow Rate 95.0 06/03/16 06/03/16 11:00 15:00 Temp 97.6 97.9 97.6 97.9 Pulse 57 50 Resp 18 18 B/P 145/87 135/73 Pulse Ox 96 99 O2 Delivery Room Air Room Air Intake and Output 06/02/16 06/02/16 06/03/16 15:00 23:00 07:00 Intake Total 500 ml 330 ml 320 ml Balance 500 ml 330 ml 320 ml SÁNCHEZ MCMAHON III DO Jun 03, 2016 17:30
[2016-06-03] MEDS ORDERED: PHENYLEPH/MINERAL OIL/PETROLAT RECTAL OINTMENT 28GM TUBE. RC PRN (18:15)
[2016-06-03] MEDS ORDERED: ZOLPIDEM 5 MG TABLET. PO PRN (18:30)
[2016-06-03] MEDS: CITALOPRAM 20 MG TABLET. PO SCH (19:43)
[2016-06-03] MEDS: CARISOPRODOL 350 MG TABLET PO SCH (19:48)
[2016-06-03 19:52] VITALS: BP 112/91
[2016-06-03] MEDS ORDERED: ZOLPIDEM 5 MG TABLET. PO SCH (21:00)
[2016-06-03 23:33] VITALS: BP 164/69
[2016-06-04] MEDS: LEVOTHYROXINE 75 MCG TABLET PO SCH (06:21)
[2016-06-04] MEDS: ALPRAZOLAM 1 MG TABLET PO PRN ×2 (06:23→13:00)
[2016-06-04 07:15] VITALS: BP 154/82
[2016-06-04] MEDS: ATENOLOL 50 MG TABLET PO SCH (08:29)
[2016-06-04] MEDS: AMLODIPINE BESYLATE 5 MG TABLET PO SCH (08:29)
[2016-06-04] MEDS: PANTOPRAZOLE 40 MG TABLET. PO SCH (08:30)
[2016-06-04] MEDS: ASPIRIN ENTERIC COATED 81 MG TABLET.DR. PO SCH (08:30)
[2016-06-04] MEDS: LOSARTAN POTASSIUM 50 MG TABLET. PO SCH (08:30)
[2016-06-04 11:00] VITALS: BP 153/80
--- NOTE | 2016-06-04 12:04 | PDOC ---
Subjective: Subjective: Feeling better, wants to leave. Says eating without issue although didn't eat breakfast because she didn't like it. No abd pain. Now agrees she takes PPI BID and carafate PRN. Objective: Objective: Reviewed records from PCP w/ RN and in chart. H/o fibromyalgia, admission at for depression, admission at [facility] psych. GI-hernandez, home meds include PPI BID and Carafate QID PRN. Vital Signs: Vital Signs Date Time Temp Pulse Resp B/P Pulse Ox O2 Delivery O2 Flow Rate FiO2 06/04/16 11:00 97.7 52 16 153/80 99 Room Air 97.7 06/04/16 08:00 95.0 PE: GEN: NAD, laying in bed LUNGS: clear anteriorly HEART: RRR ABD: NABS, S/ND/NT NEURO/PSYCH: A & O 3, more perky than yesterday A/P: Abdominal pain - resolved -h/o GERD w/ last EGD in 08/2015 -home med list includes PPI and carafate QID -- DC okay per GI - d/w RN. Still unclear if she's actually taking PPI - I encouraged her to continue this Q a.m. 30-45 min before breakfast. Could increase to BID if needed as listed on PCP med list. Reasonable to use carafate PRN if this helps. Follow-up for outpatient screening colonoscopy this year. HERON CAST Jun 04, 2016 12:04
--- NOTE | 2016-06-04 12:38 | PDOC ---
Provider Note Provider Note Urology Consult Dictated c/c urinary frequency Patient interviewed and examined She Denies any voiding problems, denies frequency and nocturia, occasional incontinence IMPRESSION: denies any voiding problems at this time Suggest: Patient welcome to make office appointment if she develops problems [facility] [place] ROY K DO Jun 04, 2016 12:38
--- NOTE | 2016-06-04 12:50 | PDOC ---
PROGRESS NOTES Chief Complaint Chief Complaint 1. epigastric abd pain with known esophagitis and esophagus web 2 lower abd pain 3., depression, anxiety, 4. hypertension urgency 5.hyperlipidemia 6. hypothyroidism 7. Smoker 8.ckd3 9. mild malnutrition 10 . urinary frequency History of Present Illness History of Present Illness pt resting with NAD Awakens Pt approaching baseline OK to DC today per GI and urology Abd pain resolved VSS DW RN Vitals Vitals Vital Signs Date Time Temp Pulse Resp B/P Pulse Ox O2 Delivery O2 Flow Rate FiO2 06/04/16 11:00 97.7 52 16 153/80 99 Room Air 97.7 06/04/16 08:00 95.0 Physical Exam General: Alert, Oriented X3 Heart: Regular rate, Normal S1 Lungs: Clear, Other (no wheezing) Abdomen: Normal bowel sounds, Soft, No tenderness Extremities: No clubbing, No cyanosis Skin: No rashes, No breakdown Review of Systems Review of Systems Complains of mild fatigue Complains of occasional urinary inconsistency Assessment and Plan Assessmemt and Plan Problems Medical Problems: (1) Abdominal pain Status: Acute (2) Nausea & vomiting Status: Acute (3) Nausea and vomiting Status: Acute Status: Acute 1. epigastric abd pain with known esophagitis and esophagus web 2 lower abd pain 3., depression, anxiety, 4. hypertension urgency 5.hyperlipidemia 6. hypothyroidism 7. SMoker 8.ckd3 9. mild malnutrition 10 . urinary frequency plan: 1. OK to DC per GI and urology 2. full liquid now 3. CONT HOME meds cont protonix and karafate 4. restart lovenox screening colonoscopy this year Problems: Comment Review of Relevant I have reviewed the following items andre (where applicable) has been applied. Labs Laboratory Tests Test 06/03/16 03:44 White Blood Count 7.0x10^3/uL (4.0-11.0) Red Blood Count 4.40x10^6/uL (3.50-5.40) Hemoglobin 13.4g/dL (12.0-15.5) Hematocrit 40.4% (36.0-47.0) Mean Corpuscular Volume 92fL (79-100) Mean Corpuscular Hemoglobin 31pg (25-35) Mean Corpuscular Hemoglobin Concent 33g/dL (31-37) Red Cell Distribution Width 15.6% (11.5-14.5) Platelet Count 266x10^3/uL (140-400) Neutrophils (%) (Auto) 34% (31-73) Lymphocytes (%) (Auto) 50% (24-48) Monocytes (%) (Auto) 10% (0-9) Eosinophils (%) (Auto) 5% (0-3) Basophils (%) (Auto) 1% (0-3) Neutrophils # (Auto) 2.4x10^3uL (1.8-7.7) Lymphocytes # (Auto) 3.5x10^3/uL (1.0-4.8) Monocytes # (Auto) 0.7x10^3/uL (0.0-1.1) Eosinophils # (Auto) 0.4x10^3/uL (0.0-0.7) Basophils # (Auto) 0.1x10^3/uL (0.0-0.2) Sodium Level 144mmol/L (136-145) Potassium Level 3.2mmol/L (3.5-5.1) Chloride Level 107mmol/L (98-107) Carbon Dioxide Level 28mmol/L (21-32) Anion Gap 9 (6-14) Blood Urea Nitrogen 10mg/dL (7-20) Creatinine 1.2mg/dL (0.6-1.0) Estimated GFR (Cockcroft-Gault) 45.5 Glucose Level 83mg/dL (70-99) Calcium Level 9.1mg/dL (8.5-10.1) Medications Current Medications Hydromorphone HCl (Dilaudid) 0.5 mg PRN Q1HR PRN IV SEVERE PAIN Last administered on 06/02/16 12:02; Start 06/02/16 at 10:45 Ondansetron HCl 4 mg 4 mg 1X ONCE IV Last administered on 06/02/16 10:54; Start 06/02/16 at 10:45; Stop 06/02/16 at 10:46; Status DC Sodium Chloride (Iv Sodium Chloride 0.9% 500ml Bag) 500 ml @ 500 mls/hr 1X ONCE IV Last administered on 06/02/16 10:54; Start 06/02/16 at 10:45; Stop at 11:44; Status DC Labetalol HCl (Normodyne) 20 mg 1X ONCE IVP Last administered on 06/02/16 12: 50; Start 06/02/16 at 12:45; Stop 06/02/16 at 12:46; Status DC Ondansetron HCl (Zofran) 4 mg PRN Q8HRS PRN IV NAUSEA/VOMITING; Start 06/02/16 at 13:45; Stop 06/02/16 at 17:02; Status DC Morphine Sulfate 2 mg PRN Q2HR PRN IV PAIN Last administered on 06/02/16 14:05 ; Start 06/02/16 at 13:45; Stop 06/03/16 at 13:44; Status DC Lorazepam (Ativan) 0.5 mg 1X ONCE PO ; Start 06/02/16 at 14:00; Stop 06/02/16 at 14:00; Status DC Lorazepam (Ativan) 0.5 mg 1X ONCE PO Last administered on 06/02/16 14:04; Start 06/02/16 at 14:00; Stop 06/02/16 at 14:01; Status DC Alprazolam (Xanax) 1 mg PRN TID PRN PO ANXIETY / AGITATION Last administered on 06/03/16 06:27; Start 06/02/16 at 16:30; Stop 06/03/16 at 12:03; Status DC Amlodipine Besylate (Norvasc) 5 mg DAILY PO Last administered on 06/04/16 08:29 ; Start 06/03/16 at 09:00 Aspirin (Ecotrin) 81 mg DAILY PO Last administered on 06/04/16 08:30; Start 06/03/16 at 09:00 Atenolol (Tenormin) 50 mg DAILY PO Last administered on 06/04/16 08:29; Start 06/03/16 at 09:00 Carisoprodol (Soma) 700 mg QHS PO ; Start 06/02/16 at 21:00 Citalopram Hydrobromide (Celexa) 40 mg HS PO Last administered on 06/03/16 19: 43; Start 06/02/16 at 21:00 Acetaminophen/ Hydrocodone Bitart (Lortab 5/325) 1 tab PRN Q6HRS PRN PO PAIN; Start 06/02/16 at 16:30 Levothyroxine Sodium (Synthroid) 75 mcg DAILY07 PO Last administered on 06:21; Start 06/03/16 at 07:00 Losartan Potassium (Cozaar) 100 mg DAILY PO Last administered on 06/04/16 08:30 ; Start 06/03/16 at 09:00 Pantoprazole Sodium (Protonix) 40 mg DAILYAC PO ; Start 06/03/16 at 07:30; Stop 06/03/16 at 07:30; Status DC Pantoprazole Sodium (Protonix) 40 mg DAILYAC PO Last administered on 06/04/16 08:30; Start 06/02/16 at 17:30 Acetaminophen (Tylenol) 650 mg PRN Q6HRS PRN PO MILD PAIN / TEMP Last administered on 06/02/16 17:17; Start 06/02/16 at 16:30 Ondansetron HCl (Zofran) 4 mg PRN Q6HRS PRN IV NAUSEA/VOMITING Last administered on 06/03/16 16:24; Start 06/02/16 at 16:30 Hydralazine HCl 10 mg 10 mg PRN Q4HRS PRN IVP ELEVATED BP, SEE COMMENTS; Start 06/02/16 at 16:30 Sodium Chloride (Iv Sodium Chloride 0.9% 1000ml Bag) 1,000 ml @ 75 mls/hr 1X ONCE IV Last administered on 06/02/16 17:22; Start 06/02/16 at 17:30; Stop at 06:49; Status DC Alprazolam (Xanax) 1 mg QID PRN PO ANXIETY / AGITATION Last administered on 06/04 06:23; Start 06/03/16 at 13:00 Phenyleph/Shark Oil/Min Oil/Petrol (Preparation H) 1 carine PRN Q6HRS PRN RC RECTAL PAIN Last administered on 06/03/16 22:34; Start 06/03/16 at 18:15 Zolpidem Tartrate (Ambien) 5 mg QHS PO Last administered on 06/03/16 19:42; Start 06/03/16 at 21:00 Zolpidem Tartrate (Ambien) 5 mg PRN QHS PRN PO INSOMNIA; Start 06/03/16 at 18:30 Active Scripts Active Hydrocodone-Apap 5-325 (Hydrocodone Bit/Acetaminophen) 1 Each Tablet 1 Tab PO PRN Q6HRS PRN Be careful as this medication may cause you to be drowsy or tired. Do not drive on this medication. Zofran Odt (Ondansetron) 4 Mg Tab.rapdis 1 Tab SL PRN Q8HRS PRN Pantoprazole Sodium 40 Mg Tablet.dr 40 Mg PO DAILYAC Amlodipine Besylate 5 Mg Tablet 5 Mg PO DAILY Reported Xanax (Alprazolam) 1 Mg Tablet 1 Mg PO PRN TID PRN Synthroid (Levothyroxine Sodium) 75 Mcg Tablet 1 Tab PO DAILY Soma (Carisoprodol) 350 Mg Tablet 2 Tab PO QHS Losartan Potassium 50 Mg Tablet 100 Mg PO DAILY Aspir 81 (Aspirin) 81 Mg Tablet.dr 1 Tab PO DAILY Celexa (Citalopram Hydrobromide) 10 Mg Tablet 40 Mg PO HS Atenolol 25 Mg Tablet 50 Mg PO DAILY Vitals/I & O Vital Sign - Last 24 Hours 06/03/16 06/03/16 06/03/16 06/03/16 15:00 19:52 20:00 23:33 Temp 97.9 97.5 97.7 97.9 97.5 97.7 Pulse 50 64 53 Resp 18 16 16 B/P 135/73 112/91 164/69 Pulse Ox 99 96 96 O2 Delivery Room Air Room Air Room Air Room Air 06/04/16 06/04/16 06/04/16 06/04/16 03:45 07:15 08:00 08:29 Temp 97.9 97.9 Pulse 61 61 Resp 16 B/P 154/82 154/82 Pulse Ox 98 O2 Delivery Room Air Room Air Room Air O2 Flow Rate 95.0 06/04/16 06/04/16 06/04/16 08:29 08:30 11:00 Temp 97.7 97.7 Pulse 61 61 52 Resp 16 B/P 154/82 154/82 153/80 Pulse Ox 99 O2 Delivery Room Air Intake and Output 06/03/16 06/03/16 06/04/16 15:00 23:00 07:00 Intake Total 1040 ml 1070 ml 400 ml Balance 1040 ml 1070 ml 400 ml SÁNCHEZ MCMAHON K III DO Jun 04, 2016 12:50
--- NOTE | 2016-06-05 16:15 | CONS ---
DATE OF CONSULTATION: 06/04/2016 CHIEF COMPLAINT: Urinary frequency. HISTORY OF PRESENT ILLNESS: This is a 60-year-old female that was admitted to the hospital for upper abdominal pain. When she is interviewed by the hospitalist, she evidently told the hospitalist that she was experiencing frequent urination and this has been a problem for a long time. Today, the patient was interviewed by me and she ____denies urinary frequency, she denies nocturia. She evidently has occasional urinary incontinence, but does not wear pads. PAST MEDICAL HISTORY: Significant for anxiety, depression, hypertension, hypothyroidism. PAST SURGICAL HISTORY: The patient had a tonsillectomy, tubal ligation and ankle surgery. ALLERGIES: No known drug allergies. PHYSICAL EXAMINATION: GENERAL DESCRIPTION: A 60-year-old female. She appears to be alert and oriented. She denies any pain other than some epigastric discomfort. ABDOMEN: Soft, nontender. Negative for flank pain bilaterally. No palpable abdominal masses. She denies suprapubic tenderness. She denies bladder pain. EXTREMITIES: Negative for cyanosis or edema. LABORATORY DATA: White blood cell count is normal at 7.0, hemoglobin 13.4, hematocrit 40.4, platelets are adequate. The patient's electrolytes, potassium low at 3.2. Her creatinine is 1.2, BUN is 10. Urinalysis abiel in color, occasional red blood cells, occasional white blood cells, trace bacteria. URINE CULTURE: No urine culture on the chart. X-RAY STUDIES: A CT scan of the abdomen and pelvis without contrast was performed. There was no acute abnormality seen. The kidneys appear to be normal bilaterally. IMPRESSION: Urinary frequency. PLAN: The patient currently denies any voiding problems. She denies urinary frequency. She denies nocturia. The patient is welcome to make an outpatient followup appointment to our office if her symptoms. SHIRLEY CHOPRA DO DR: DEL/jazzy JOB#: [id number] / [id number]
== END 2016-06-04 13:00 | disposition home or self-care (01) | DRG 391 ==
LOC: ER 09:24 → 6 SOUTH 13:28
PROVIDERS: ADMIT Internal Medicine; ATTEND Internal Medicine
DX: K21.0 Gastro-esophageal reflux disease with esophagitis (principal); Q39.4 Esophageal web; E44.1 Mild protein-calorie malnutrition; Z68.42 Body mass index [BMI] 45.0-49.9, adult; E03.9 Hypothyroidism, unspecified; E78.00 Pure hypercholesterolemia, unspecified; E78.5 Hyperlipidemia, unspecified; R10.13 Epigastric pain; F17.200 Nicotine dependence, unspecified, uncomplicated; F32.9 Major depressive disorder, single episode, unspecified; F41.9 Anxiety disorder, unspecified; I12.9 Hypertensive chronic kidney disease with stage 1 through stage 4 chronic kidney disease, or unspecified chronic kidney disease; K59.00 Constipation, unspecified; N18.3 Chronic kidney disease, stage 3 (moderate); M54.9 Dorsalgia, unspecified; I16.0 Hypertensive urgency; Z87.11 Personal history of peptic ulcer disease; Z90.710 Acquired absence of both cervix and uterus; Z98.51 Tubal ligation status; Z91.19 Patient's noncompliance with other medical treatment and regimen
CPT/HCPCS: 36415; 51701; 71010; 74176; 80048; 80076; 81001; 83690; 83880; 84484; 85027; 93005; 96361; 96374; 96375; 96376; 99406; J1170; J2270; J2405; J3490; J7030; J7040; 97535; 99285-25

== ENCOUNTER → 2017-09-26 | Outpatient (CLI) | payer BC | END | disposition home or self-care (01) | LOC: KCIC 10:09 | DX: R10.84 Generalized abdominal pain (principal); I12.9 Hypertensive chronic kidney disease with stage 1 through stage 4 chronic kidney disease, or unspecified chronic kidney disease; N18.3 Chronic kidney disease, stage 3 (moderate) | CPT/HCPCS: 74018 ==

== ENCOUNTER → 2019-12-16 | Outpatient (CLI) | payer BC ==
[~2019-12-16] MED LIST changes: +ALPR1TAB2 PO; +AMLO5TAB10 PO; -AMLO5TAB2 PO; -ESCI5TAB8 PO; +HYDR-2761 PO; -LEVO25TA2 PO; +LEVO25TA55 PO; +LEVO75TA90 PO; +LEXAPRO5 MG PO; +LOSA-73 PO; -LOSA50TA6 PO; +ONDA4TAB10 SL; -PANT40TA5 PO; +PANT40TA77 PO
--- NOTE | 2019-12-22 17:01 | KCIC ---
Bilateral digital screening mammograms: Reason for examination: Routine screening. Comparison is made to previous studies dated between 01/26/2015 and 08/29/2010. Interpretation was made with the benefit of CAD. The skin and nipples show no abnormalities. No abnormal axillary lymph nodes are seen. The breast parenchyma shows scattered fibroglandular density. (Breast density: Category B.) There is nodular parenchymal asymmetry anteriorly in the upper outer quadrant of the right breast. 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 There are no new dominant masses, suspicious calcifications or architectural distortions. Some benign calcifications are present. Impression: Small nodular asymmetries bilaterally which are stable. No evidence of malignancy. Recommend routine screening. BI-RADS category 2: Benign "Our facility is accredited by the [employer] Mammography [employer]." This patient's information has been entered into a reminder system for the patient to be notified with the results of her examination and a target date for the next mammogram. Electronically signed by: Kirstin Link MD (12/22/2019 4:58 PM) [id number]
== END | disposition home or self-care (01) ==
LOC: KCIC 13:37
PROVIDERS: ATTEND Family Medicine
DX: Z12.31 Encounter for screening mammogram for malignant neoplasm of breast (principal); N64.89 Other specified disorders of breast
CPT/HCPCS: 77067

== ENCOUNTER → 2019-12-16 | Outpatient (CLI) | payer BC ==
--- NOTE | 2019-12-16 17:11 | KCIC ---
EXAM: 2 VIEW ABDOMEN WITH ONE VIEW CHEST. HISTORY: Abdominal pain. COMPARISON: None. FINDINGS: A frontal view of the chest and supine/upright views of the abdomen are obtained. There are no confluent infiltrates. There is no pneumothorax or pleural effusion. The heart is not enlarged. There is no pneumoperitoneum. There are no distended small bowel loops or significant air-fluid levels. There is gas distally. Stool throughout the right colon suggests mild constipation. IMPRESSION: 1. No confluent infiltrates. 2. No evidence of obstruction. Correlate for mild constipation. Electronically signed by: Crista Lares MD (12/16/2019 5:08 PM) [id number]
== END | disposition home or self-care (01) ==
LOC: KCIC 13:17
PROVIDERS: ATTEND Internal Medicine Gastroenterology
DX: R10.0 Acute abdomen (principal)
CPT/HCPCS: 74022